=== PATIENT | male | born 1945 | race Caucasian/White ===

== ENCOUNTER → 2018-05-19 15:36 | Outpatient (CLI) | payer MEDICARE, OTHER, SELFPAY ==
--- NOTE | 2018-05-19 | DI.MRI.S_ITS ---
PROCEDURE: MR KNEE LT WO CON INDICATIONS: PRIMARY OF OSTEOARTHRITIS OF LEFT KNEE. LEFT KNEE PAIN TECHNIQUE: Noncontrast sagittal PD fast spin echo and T2 fast spin echo with fat saturation, sagittal 3-D FLASH with fat saturation; coronal T1 spin echo and PD fast spin echo with fat saturation, and axial PD fast spin echo with fat saturation through the knee. COMPARISON: [facility], CR, XR KNEE ARTHRITIC SERIES LT, 05/15/2018, 11:18. FINDINGS: Image quality: Excellent. Menisci: The there is radial tearing of the anterior horn medial meniscus. There is linear high signal horizontally traversing the posterior horn medial meniscus, demonstrating superior articular surface extension, indicating horizontal tearing. Lateral extrusion of the lateral meniscus is present. There is a moderately distracted tear of the posterior horn lateral meniscus. There is amorphous high signal within the lateral meniscal body, demonstrating superior and inferior articular surface extension, indicating degenerative tearing. Linear high signal intensity obliquely traverses the anterior horn lateral meniscus, demonstrating superior articular surface extension, indicating oblique tearing. Cruciate ligaments: The anterior and posterior cruciate ligaments appear intact. Medial structures: The medial collateral ligament appears intact. Visualized portions of the pes anserinus tendons appear normal. No abnormal bursal fluid. Lateral structures: The lateral collateral ligament demonstrates a small amount of fluid signal intensity at its femoral insertion site, indicating partial thickness tearing. The long and short heads of the biceps femoris tendon appear intact. The popliteus tendon appears normal. Iliotibial band appears normal. Anterior structures: The quadriceps and patellar tendons appear intact. Patellar alignment is normal. No femoral trochlear dysplasia or ventral trochlear prominence. No edema in the infrapatellar fat pad. Bones and cartilage: No bone marrow contusions or fractures. Moderate tricompartmental periarticular osteophyte formation. Mild degenerative marrow edema within the subchondral weightbearing aspects of the lateral femoral condyle and lateral tibial plateau. There is mild articular cartilage loss overlying the medial patellar facet. Severe diffuse articular cartilage loss overlies the weightbearing aspects of the lateral femoral condyle and lateral tibial plateau. Moderate diffuse articular cartilage loss overlies the weightbearing aspects of the medial femoral condyle and medial tibial plateau. Joint space: There is a small knee joint effusion and a trace Hazel's cyst. Normal appearing synovial plicae are incidentally noted. IMPRESSION: 1. Tricompartmental loss arthritis with associated articular cartilage loss as described above. 2. Medial and lateral meniscal tearing. 3. Knee joint effusion and Hazel's cyst. 4. Partial-thickness lateral collateral ligament tear. Dictated by: Demarcus Velasquez M.D. on 05/19/2018 at 16:28 Approved by: Demarcus Velasquez M.D. on 05/19/2018 at 16:34
== END ==
PROVIDERS: Family Provider Internal Medicine; PCP Internal Medicine; Visit Provider Orthopaedic Surgery
DX: M17.12 Unilateral primary osteoarthritis, left knee (principal); S83.242A Other tear of medial meniscus, current injury, left knee, initial encounter; S83.282A Other tear of lateral meniscus, current injury, left knee, initial encounter; S83.422A Sprain of lateral collateral ligament of left knee, initial encounter; M25.462 Effusion, left knee; M71.22 Synovial cyst of popliteal space [Baker], left knee
CPT/HCPCS: 73721

== ENCOUNTER 2018-08-23 09:22 | Day surgery (SDC) | payer MEDICARE, OTHER, SELFPAY ==
[2018-08-08 10:43] VITALS: BMI 27.7
[2018-08-23] VITALS (13 sets, daily range): BP systolic 95–130; BP diastolic 56–91; PULSE 56–74; RESP 11–18; TEMP 36.3–36.7; O2SAT 95–100; BMI 27.7
--- NOTE | 2018-08-23 10:27 | PM.PREOP ---
Pre-operative Note Interval Note History & Physical reviewed/Exam performed by Physician: Yes Changes to H&P: No
--- NOTE | 2018-08-23 10:29 | PM.OP.1 ---
Operative Date/Time/Diagnoses Date of procedure: 08/23/18 Time of procedure: 13:10 Pre-op diagnosis: Left knee osteoarthritis Post-op diagnosis: same Procedure & Clinicians Procedure: Left total knee arthroplasty Same procedure as scheduled: Yes Indications: The patient presents today for total knee arthroplasty after failure of conservative treatment. The nature of the procedure including the risks and benefits, alternatives, postoperative course and expected outcome were discussed and all questions answered. Consent was obtained. Operative site confirmed and marked. Surgeon: Leopoldo Cueva Precipitation Equipment Tender: Alex Meza Anesthesia Type: Spinal, Sedation and Local Operative Notes Findings: Severe lateral compartment osteoarthritis. Closure Type: primary Specimen(s): none sent Prosthetic devices, grafts, tissues, transplants, or devices: Rodriguez and [employer] Safety Manangement Demarco BCS: 7 femoral component, 7 tibial component, 9 mm BCS polyethylene tray and 35 x 9 mm round patella Applied: implant(s) Estimated Blood Loss (mL): 20 Blood products transfused: none Tourniquet time (min): 49 Procedure in detail: The patient was taken to the operative suite and placed under spinal anesthesia with sedation. The patient was given prophylactic antibiotics prior to surgery. The patient was also given tranexamic acid, 1 g, just prior to surgery for postoperative hemostasis. The lateral knee was prepped and the joint injected with 20 mL of 1% Lidocaine with epinephrine. The knee was then prepped and draped in usual sterile fashion. The leg was exsanguinated with an Esmarch dressing and the tourniquet raised to 250 torr. A 15 cm anterior incision was made. Next a medial trivector arthrotomy was made. The extensor mechanism was marked to ensure accurate repair. Initial exposing dissection was carried out medially and laterally. The knee was then extended and the patellar thickness was measured and a cut made removing approximately 9 mm of bone with a goal of restoring normal patellar thickness. The patella was then sized and drilled. Some excess lateral bone was excised and the patellofemoral ligament released. The tourniquet was then released. The knee was then flexed and the [employer] femoral guide was placed. The anterior pins were placed and the distal rotation holes drilled. The distal cutting guide was placed and the templated distal femoral cut was made. The templating cutting block was then placed and the anterior, posterior and chamfer cuts made. The [employer] tibial guide was placed and the alignment checked along the axis of the proximal tibial with a ozzie. The proximal tibial cut was then made with an oscillating saw. All meniscus and bony debris was then removed. Flexion extension gaps were checked. No specific balancing was required other than routine exposure and removal of osteophytes. The soft tissues were then injected with a combination of 20 mL of half percent Marcaine with epinephrine and 20 mL of Exparel. The trial components were then placed. The knee went into full extension and flexion beyond 120?. There was excellent medial- lateral balance throughout motion. Patellar tracking was excellent. The trial components were removed and size is confirmed for the final implants. The knee was then exsanguinated with an Esmarch dressing and the tourniquet reapplied for cementing. The knee was cleansed with Pulsavac irrigation and dried. The final components were cemented in with high viscosity vacuum mixed bone cement with antibiotics. The knee was held in extension and the patellar clamp until the cement had adequately cured. The knee was then irrigated with dilute Betadine solution. The extensor mechanism was closed with 5 interrupted #1 Vicryl sutures in 90 degrees of flexion. The joint was then injected with a combination of 1 g of tranexamic acid and 20 mL of quarter percent Marcaine with epinephrine. The subcutaneous tissue was closed with 2-0 Vicryl. The skin was closed with pat and surgical adhesive. An Aquacel dressing and Henrry wrap were then applied. Complications: none Condition: stable Disposition: PACU Plan for aftercare: [facility] protocol for total knee arthroplasty.
[2018-08-23] MEDS: LACTATED RINGERS 1,000 ML 42 ML IV (11:02)
[2018-08-23] MEDS: PREGABALIN 75 MG CAPSULE PO (11:02)
[2018-08-23] MEDS: ACETAMINOPHEN 325 MG TABLET 975 MG PO ×3 (11:02→21:08)
--- NOTE | 2018-08-23 11:19 | SUR.OPER ---
Supine on padded OR bed. Pillow under head, arms secured on padded armboards <90 degree abduction. Safety belt across torso. Non-operative leg secured with tape over blanket over lower leg. Operative leg secured in DeMayo/Jensen positioner. Foam padded brace at thigh of operative leg.
[2018-08-23] MEDS: CEFAZOLIN 2 GM/100 ML FROZ.PIGGY IV ×2 (11:40→20:05)
--- NOTE | 2018-08-23 12:15 | DI.RAD.S_ITS ---
PROCEDURE: XR KNEE LT 1TO2V INDICATIONS: TOTAL KNEE LEFT TECHNIQUE: 2 view(s) of the knee acquired. COMPARISON: None. FINDINGS: Bones: Patient is status post knee joint arthroplasty. Hardware components are in expected positions. Visualized bony structures are intact. Soft tissues: Overlying postoperative changes are noted. IMPRESSION: Expected postoperative appearance Dictated by: Saroj Antoine M.D. on 08/23/2018 at 14:10 Approved by: Saroj Antoine M.D. on 08/23/2018 at 14:11
[2018-08-23] MEDS: TRANEXAMIC ACID 1,000 MG VIAL 1000 MG IV ×2 (12:25→12:26)
[2018-08-23] MEDS: LIDOCAINE 1% W/EPI INJ 20 ML INJ (12:27)
[2018-08-23] MEDS: BUPIVACAINE 0.5% W/ EPI (PF) 20 ML, BUPIVACAINE LIPOSOME 266 MG, SODIUM CHLORIDE 0.9% 2... INJ (12:28)
[2018-08-23] MEDS: BUPIVACAINE 0.5% W/ EPI (PF) VIAL 10 ML INJ (12:38)
[2018-08-23] MEDS: LACTATED RINGERS 1,000 ML 125 ML IV (14:36)
--- NOTE | 2018-08-23 15:11 | PC.NURSE ---
Day Shift- Report rec'd from RN coordinator at 1420, pt arrived to unit via bed at 1410, pt's finance Garima at bedside. Pt A&OX4, denies pain, IVF started per order.
[2018-08-23] MEDS: RIVAROXABAN 10 MG TABLET 20 MG PO (17:23)
[2018-08-23] MEDS: OXYCODONE IR 5 MG TABLET PO ×2 (17:58→21:12)
--- NOTE | 2018-08-23 18:39 | PC.NURSE ---
Addendum entered by Samanta Kenny 08/23/18 20:37: Clarification: Percolone administered by Registered Nurse and observed by myself. Original Note: Evening shift note by Samanta Kenny, Student Nurse Patient denied pain until 174, after which a score of 2, and then 3 were reported. Acetaminophen 975 mg was administered and after a higher pain score was reported, Percolone was administered. Appetite strong, started with crackers and after verification of regular diet, patient was given dinner. A-fib was auscultated during physical assessment of patient.
[2018-08-23] MEDS: HYDROMORPHONE 1 MG INJ 0.5 MG IV ×2 (19:00→23:33)
[2018-08-23] MEDS: ONDANSETRON 4 MG/2 ML INJ IV (19:12)
--- NOTE | 2018-08-23 19:54 | PC.NURSE ---
Pt in bed throughout shift, reports moderate to severe pain following PO pain med, IV dilaudid administered, nausea without emesis following dilaudid, improved with IV zofran; c/m/s to LLE positive, strong pedal pulse; VSS; pt tolerating regular diet; IV fluids infusing; bed alarm active, in room
[2018-08-23] MEDS: ATORVASTATIN 20 MG TABLET PO (21:09)
[2018-08-24] MEDS: OXYCODONE IR 5 MG TABLET PO ×3 (00:28→09:15)
[2018-08-24] MEDS: ONDANSETRON 4 MG/2 ML INJ IV (00:29)
[2018-08-24] MEDS: LACTATED RINGERS 1,000 ML 125 ML IV (00:30)
[2018-08-24] MEDS: ONDANSETRON 4 MG ODT PO (00:52)
[2018-08-24] MEDS: CEFAZOLIN 2 GM/100 ML FROZ.PIGGY IV (03:47)
[2018-08-24 04:03] VITALS: BP 107/57; PULSE 89; RESP 18; TEMP 36.5; O2SAT 96
[2018-08-24] MEDS: PANTOPRAZOLE 40 MG TABLET PO (05:52)
[2018-08-24 06:00] LABS: Hemoglobin 13.9 g/dL (13.5-17.5)
[2018-08-24 07:18] VITALS: BP 118/68; PULSE 90; RESP 18; TEMP 36.7; O2SAT 95
--- NOTE | 2018-08-24 08:40 | P.DS_ITS ---
History of Present Illness Date Patient Seen: 08/24/18 Time Patient Seen: 08:36 Chief complaint: left total knee arthroplasty 33310 Narrative: Hospital day 2, postop day 1 following left total knee arthroplasty by Dr. Cueva. Patient has remained stable postoperatively. He was able to get some rest off and on. Taking oxycodone 5 mg for pain and Tylenol. He is a [facility] patient. He does have prescriptions at home for oxycodone and Vistaril. He is scheduled to go to [facility] in [place]. He has restarted his Xarelto for his AFib. Patient feels that he would be able to go home today. No stairs at home. Discharge Providers Date of admission: 08/23/18 09:22 Primary care physician: Jackie Alberst MD Consults: 08/23/18 14:21 Consult to Discharge Planning Routine Comment: Consult to Physical Therapy Evaluate & Treat Comment: Physician Instructions: postop TKA protocol Consult to Respiratory Therapy Evaluate & Treat Comment: Physician Instructions: Evaluate and treat Discharge provider: Timo Harman PA-C Discharge Date: 08/24/18 Summary Discharge Diagnosis: Status post left total knee arthroplasty Hospital Course: Patient brought to hospital on 08/23/2018 for above noted surgery. He remained stable postoperatively. Gradually improve with PT. Ready for discharge home on postop day 1. Status at Discharge Cognitive/behavioral status at discharge: Alert, oriented no acute distress. Functional status at discharge: uses cane/walker Overall status at discharge: patient is progressing back to baseline Time Spent with Patient Less than 30 minutes Exam Vital Signs (past 8 hours): - 08/24/18 04:03 08/24/18 07:18 Temperature 97.7 F 98.0 F Pulse Rate 89 90 Respiratory Rate 18 18 Blood Pressure 107/57 L 118/68 Pulse Oximetry 96 95 Fraction of Inspired Oxygen 21 Oxygen Delivery Method Room Air Oxygen Flow Rate 0 Narrative Exam Narrative: Legs. His Henrry wrap and Aquacel dressing to left knee is dry without drainage or inflammation. No calf pain or swelling. Pulses symmetrical. Objective Labs Result Diagrams: 08/24/18 05:30 Labs: Laboratory Results - last 24 hr 08/24/18 05:30 Hgb 13.9 Hct 42.0 Discharge Plan Discharge Plan Patient Disposition: Home Discharge comment: Discharged home after cleared by PT. Patient has prescriptions at home for oxycodone and Vistaril. Discharge Med Rec/Prescriptions Prescriptions: New acetaminophen 325 mg Tablet 975 mg PO TID 30 Days Qty: 270 RF: 0 docusate sodium 100 mg Capsule 100 mg PO DAILY Qty: 30 RF: 0 Continue atorvastatin [Lipitor] 20 mg Tablet 20 mg PO BEDTIME RF: 0 diltiazem HCl 180 mg Capsule,Extended Release 24 Hr 180 mg PO DAILY RF: 0 sildenafil [Viagra] 100 mg Tablet 100 mg PO DAILY PRN (Reason: Sexual Activity) RF: 0 ranitidine HCl 150 mg Tablet 2 tab PO BEDTIME RF: 0 omeprazole 20 mg Tablet,Delayed Release (Dr/Ec) 40 mg PO QAM RF: 0 rivaroxaban [Xarelto] 20 mg Tablet 20 mg PO QPM RF: 0 Follow up/Referrals: Jackie Alberts MD [Primary Care Provider] - Provider Discharge Instructions Diet: Diet as Tolerated Activity: Ambulate as tolerated. Cold/Heat Therapy: Cold pack to left knee as needed. Skin/Wound/Dressing Care Dressing: Keep Aquacel dressing in place until postop visit. Visit Report/Discharge Packet Instructions: DI for Knee Replacement, How to Prevent Falls Visit Report Forms: Stroke Signs & Symptoms Discharge Data Primary Care Provider: Jackie Alberts Attending Provider: Leopoldo Cueva Admit Date/Time: 08/23/18 09:22
[2018-08-24 09:02] VITALS: PULSE 61; RESP 16; O2SAT 97
--- NOTE | 2018-08-24 09:15 | PT.IIE ---
Current Diagnoses Unilateral primary osteoarthritis, left knee (08/23/18) Surgery Performed Operation Date: 08/23/18 12:15 Actual Procedures p Total Knee Arthroplasty(Left) - Leopoldo Cueva MD Surgical History (Last Updated 08/08/18 @ 11:20 by Alcira Sultana, RN) H/O: vasectomy (Acute) History of Mile fundoplication (Acute) Hx of cholecystectomy (Acute) Hx of tonsillectomy (Acute) Status post Mohs surgery (Acute) Medical History (Last Updated 08/08/18 @ 11:20 by Alcira Sultana RN) Alcohol dependence, continuous drinking behavior (Acute) Anemia (Acute) Anxiety (Acute) Back pain (Acute) Rene's esophagus (Acute) COPD (chronic obstructive pulmonary disease) (Acute) Chronic atrial fibrillation (Acute) Chronic kidney disease, stage 3 (Acute) Depression (Acute) Dyslipidemia (Acute) Former smoker (Acute) GERD (gastroesophageal reflux disease) (Acute) HTN (hypertension) (Acute) Interstitial pulmonary disease, unspecified (Acute) Melanoma (Acute) Osteoarthritis (Acute) PTSD (post-traumatic stress disorder) (Acute) Panic attacks (Acute ~2010) Paroxysmal atrial fibrillation (Acute) Paroxysmal atrial flutter (Acute) Pneumonia (Acute) Sciatica (Acute) Tachycardia (Acute) Thin skin (Acute) Wrist fracture (Acute ~1961) Physical Therapy Inpatient Evaluation/Re-Eval M1 PT/OT-IP Prior Functional Status Start: 08/24/18 10:51 Freq: NEEDED Status: Active Protocol: Document 08/24/18 09:15 AB (Rec: 08/24/18 11:01 AB [email or web address]) Medical Review Prior Functional Status Medical History Reviewed Yes Communication able to make needs known Mobility and Gait pt stated that he is independent with all mobilities and ambulation without AD Social History Household Members significant other Living Arrangements House Number of Floors (Floors) One Floor Number of Stairs To Enter/Railing? none Home Environment Standard Height Toilet Walk in Shower Built-In Shower Seat Home Equipment Front Wheel Walker Straight Cane Crutches Raised Toilet Seat w/Armrests Shower Seat without Backrest Hand Held Shower Grab Bars In Shower Employment Status Retired Additional Social History Comment has a tripod cane and SPC M2 PT-IP Current Condition Start: 08/24/18 10:51 Freq: NEEDED Status: Active Protocol: Document 08/24/18 09:15 AB (Rec: 08/24/18 11:01 AB [email or web address]) Physical Therapy Current Condition Current Condition Evaluation Date 08/24/18 Treatment Diagnosis s/p L TKA; difficulty in walking Onset Date 08/23/18 Weight Bearing Status Weight Bearing Status Weight Bear as Tolerated M3 PT-IP Subjective Start: 08/24/18 10:51 Freq: NEEDED Status: Active Protocol: Document 08/24/18 09:15 AB (Rec: 08/24/18 11:01 AB [email or web address]) Subjective Physical Therapy Visit Type Type Initial Evaluation Visit Start Time 09:15 Visit Stop Time 09:55 Total Visit Minutes 40 Number of STOVE TENDER Visits 0 Physical Therapy Visit Comments Patient Comments pt agreeable to do PT Therapy Pain Assessment Pain When Pain Assessed At Rest Pain Present Pain Present Pain Reported Location Left Knee Intensity 2 Scale Used Numeric (1 - 10) Pain Management Techniques Apply Cold Re-positioning Timing of Activity with Medications M4 PT-IP Mobility and Gait Start: 08/24/18 10:51 Freq: NEEDED Status: Active Protocol: Document 08/24/18 09:15 AB (Rec: 08/24/18 11:01 AB [email or web address]) PT-Bed Mobility Assessment Supine to Sit Supine to Sit Standby Assistance Sit to Supine Sit to Supine Standby Assistance Scooting Scooting to Edge of Bed Standby Assistance Scooting Up and Down in Bed Standby Assistance PT-Transfer Assessment Sit to and From Stand Sit to and from Stand Standby Assistance Use of Upper Extremities Equipment Transfer Assistive Device Gait Belt Front Wheeled Walker Orthotic/Prosthetic Devices or Brace: No Gait Assessment Gait Gait Assistance Required: Standby Assistance Distance (Feet) 150 Able to Maintain Weight Bearing Status Yes During Gait Assistive Devices Assistive Device Gait Belt Front Wheeled Walker Orthotic/Prosthetic Devices or Brace: No Gait Deviations General Gait Pattern Antalgic Decreased Stride Length Decreased Feet Clearance Factors Limiting Gait Function Factors Limiting Gait Function Decreased Activity Tolerance Decreased Strength Limited Range of Motion Pain Poor Balance PT-Balance Assessment Sitting Balance and Reactions Static Sitting Balance Ability Good Dynamic Sitting Balance Ability Good Standing Balance and Reactions Static Standing Balance Ability Fair Dynamic Standing Balance Ability Fair Device Used FWW M5 PT-IP Objective Assessments Start: 08/24/18 10:51 Freq: NEEDED Status: Active Protocol: Document 08/24/18 09:15 AB (Rec: 08/24/18 11:01 AB [email or web address]) Orientation Orientation/Cognition Level of Alertness Alert Orientation Name Age Birthday Month Date Year Day of Week Place Situation Language Function Ability No Deficits Noted Safety Awareness Understands Safety Issues Memory Description No Deficits Noted Gross Range of Motion Lower Extremity ROM Assessment Left Impaired Impairments L knee flexion: 70 deg Strength Lower Extremity Strength Assessment Left Impaired Knee 3+/5 Muscle Tone Muscle Tone WNL Yes M6 PT-IP Treatment Start: 08/24/18 10:51 Freq: NEEDED Status: Active Protocol: Document 08/24/18 09:15 AB (Rec: 08/24/18 11:01 AB [email or web address]) Physical Therapy Treatment Exercises Exercises Quad Sets Heel Slides Straight Leg Raises Education Education Provided Precautions Weight Bearing Status Post-Op Packet Safety M7 PT-IP Assessment and Plan Start: 08/24/18 10:51 Freq: NEEDED Status: Active Protocol: Document 08/24/18 09:15 AB (Rec: 08/24/18 11:01 AB [email or web address]) PT Summary Assessment and Plan Potential Rehabilitation Potential Good Status of Condition at Evaluation Stable Summary Impairments Pain ROM Strength Balance Coordination Sensation Tone Cognition Bed Mobility Transfers Gait Activity Tolerance Assessment Summary pt requiring SBA with mobility and plans to go home with spouse to assist. pt may go home when medically stable. Goals Bed Mobility Goal Independent Transfer Goal Independent Front Wheeled Walker Gait Goal Independent Front Wheel Walker Gait Distance 200 Days to Meet Goals 3 Frequency of Treatment Frequency Of Treatment Twice a Day Treatment Plan Physical Therapy Treatment Plan Bed Mobility Training Transfer Training Gait Training Therapeutic Exercise Balance Retraining Post Op Education Discharge Planning Hot or Cold Pack Neuromuscular Re-ed Coordination Retraining Manual Therapy Recommendations To Nursing Amount of Assist Needed Standby Assistance Discharge Recommendations PT Discharge Recommendations Home with Assistance Outpatient PT
[2018-08-24] MEDS: ACETAMINOPHEN 325 MG TABLET 975 MG PO (09:16)
[2018-08-24] MEDS: dilTIAZem CD 180 MG CAP PO (09:17)
[2018-08-24] MEDS: DOCUSATE 100 MG CAPSULE PO (09:17)
--- NOTE | 2018-08-24 10:48 | CM.DANOTE ---
DCP Assessment/Brief Note Patient is a 72 year old male who was admitted on 08/23/18 for Left total knee. Pt has [employer] for insurance and his PCP is Dr. Alebrts. EMR was reviewed. Per Ortho PA, pt is medically stable to d/c home today pending PT eval. PT ordered and pending. Per RN, no concerns at this time. Due to triage needs, no bedside assessment at this time pending PT recommendations. Plan: SW to follow for PT eval and recommendations towards likely pt d/c home today. NGHIA Larkin
--- NOTE | 2018-08-24 10:55 | PC.NURSE ---
Day Shift- Pt given prn Oxycodone at 0915 in anticipation of working with PT. Effective pain management. Pain reported to left knee as a dull ache 2/10. Cleared by PT. Left knee aquacel dressing CDI, che wrap present, ice pack on intermittently. Pt's finance Garima in room to drive pt home. Discharge instructions reviewed from discharge summary, reviewed but not limited to S/S of infection, pain management, preventing constipation, mobility. Pt states home is ADA equipped. Pt states is ready to go home, did not want to wait until after lunch. Pt left unit with all belongings. Pt left unit via wheelchair in no distress with RN and student outreach coordinator.
== END 2018-08-24 10:45 | disposition home or self-care (01) ==
LOC: AC 08-24 08:42 → OR 08-24 11:25
PROVIDERS: Family Provider Internal Medicine; PCP Internal Medicine; Visit Provider Orthopaedic Surgery
PROC: 0SRD0JZ Replacement of Left Knee Joint with Synthetic Substitute, Open Approach (ICD-10-PCS; CPT 27447; principal; 2018-08-23 12:15)
DX: M17.12 Unilateral primary osteoarthritis, left knee (principal); I48.91 Unspecified atrial fibrillation; Z87.891 Personal history of nicotine dependence; J44.9 Chronic obstructive pulmonary disease, unspecified
CPT/HCPCS: 27447; 36415; 73560; 85014; 85018; 94762; 97110; 97161; C1776; C9290; J0690; J1170; J2250; J2405